=== PATIENT | female | born 1965 | race Caucasian/White ===

== ENCOUNTER 2017-06-08 15:31 | Outpatient (CLI) | payer OTHER | END 2017-06-08 15:32 | disposition home or self-care (01) | LOC: BICMAMMO 15:31 | PROVIDERS: ATTEND Family Medicine | DX: Z12.31 Encounter for screening mammogram for malignant neoplasm of breast (principal) | CPT/HCPCS: 77063; 77067 ==

== ENCOUNTER 2017-07-01 06:12 | Day surgery (SDC) | payer OTHER ==
[2017-06-30 13:14] VITALS: BMI 32.8
[2017-07-01] MEDS ORDERED: Lidocaine 1% PF 5 ML VIAL ONE (08:29)
[2017-07-01] MEDS ORDERED: Propofol 200 MG/20 ML VIAL ONE (08:29)
--- NOTE | 2017-07-01 11:43 | OP ---
DATE OF PROCEDURE: 07/01/2017 SURGEON: Dmitriy Null M.D. PREOPERATIVE DIAGNOSES: 1. Colorectal cancer screening, at increased risk. 2. Family history of sister who had polyps that were removed surgically with segmental colon resecti on. POSTOPERATIVE DIAGNOSES: 1. A 5 mm polyp in the cecum, removed by snare polypectomy. 2. Mild diverticulosis coli scattered throughout the colon. 3. Otherwise, normal exam. RECOMMENDATIONS: 1. Await histopathology. 2. Repeat colonoscopy in 5 years. ANESTHESIA: TIVA. PROCEDURE IN DETAIL: After the patient was informed of the risks, benefits, possible complications o f endoscopy including perforation or bleeding, reaction to medication, and aspiration, informed conse nt was obtained. The patient was brought to endoscopy suite where she was sedated in gentle fashion. Rectal exam was performed which was normal. The endoscope was inserted anal canal, through the col on to the cecum. Prep was good. The scope was then slowly removed with good visualization of the mu cosa. One sessile polyp was noted in the cecum, about 5 mm in size, removed by hot snare polypectomy and retrieved and submitted to Pathology. Retroflexed views in the cecum to the right colon appeare d normal. Forward view showed no other polyps or lesions. The scope was slowly removed through the remainder of the colon with withdrawal time about 7 minutes. There was scattered diverticulosis coli in the rectum. Retroflexion was normal. The scope was removed. The patient tolerated the procedur e well with no complications.
== END 2017-07-01 09:30 | disposition home or self-care (01) ==
LOC: SDC 06:12
PROVIDERS: ATTEND Internal Medicine Gastroenterology
PROC: 0DBH8ZX Excision of Cecum, Via Natural or Artificial Opening Endoscopic, Diagnostic (ICD-10-PCS; principal; 2017-07-01)
DX: Z12.11 Encounter for screening for malignant neoplasm of colon (principal); D12.0 Benign neoplasm of cecum; K57.30 Diverticulosis of large intestine without perforation or abscess without bleeding; J45.909 Unspecified asthma, uncomplicated; F32.9 Major depressive disorder, single episode, unspecified; F41.9 Anxiety disorder, unspecified; Z79.1 Long term (current) use of non-steroidal anti-inflammatories (NSAID); Z79.51 Long term (current) use of inhaled steroids; Z79.899 Other long term (current) drug therapy
CPT/HCPCS: 88305; J2001; J2704

== ENCOUNTER 2017-09-14 19:30 | Outpatient (CLI) | payer OTHER | END 2017-09-14 19:31 | disposition home or self-care (01) | LOC: SLEEPLAB 19:30 | PROVIDERS: ATTEND Family Medicine | DX: G47.33 Obstructive sleep apnea (adult) (pediatric) (principal) | CPT/HCPCS: 95810 ==

== ENCOUNTER 2017-10-09 19:30 | Outpatient (CLI) | payer OTHER | END 2017-10-09 19:31 | disposition home or self-care (01) | LOC: SLEEPLAB 19:30 | PROVIDERS: ATTEND Family Medicine | DX: G47.9 Sleep disorder, unspecified (principal); G47.33 Obstructive sleep apnea (adult) (pediatric) | CPT/HCPCS: 95811 ==

== ENCOUNTER 2018-06-27 11:54 | Outpatient (CLI) | payer OTHER | END 2018-06-27 11:55 | disposition home or self-care (01) | LOC: BICMAMMO 11:54 | PROVIDERS: ATTEND Family Medicine | DX: Z12.31 Encounter for screening mammogram for malignant neoplasm of breast (principal); R92.1 Mammographic calcification found on diagnostic imaging of breast | CPT/HCPCS: 77063; 77067 ==

== ENCOUNTER 2019-06-28 07:45 | Outpatient (CLI) | payer OTHER ==
--- NOTE | 2019-06-28 08:55 | MMO ---
Bilateral MAMMO Bilat Screen [facility]. CLINICAL HISTORY: Patient is 54 years old and is seen for screening. The patient has no family history of breast cancer. The patient has no personal history of cancer. VIEWS: The views performed were: bilateral craniocaudal with tomosynthesis; bilateral mediolateral oblique with tomosynthesis; and bilateral exaggerated craniocaudal. FILMS COMPARED: The present examination has been compared to prior imaging studies performed at [facility] on 06/08/2017 and 06/27/2018, and at [facility] on 04/04/2015 and 04/15/2016. This study has been interpreted with the assistance of computer-aided detection. MAMMOGRAM FINDINGS: The breasts are heterogeneously dense, which could obscure a lesion on mammography. There is a stable oval mass seen in the posterior inner region of the right breast. There are no suspicious masses, suspicious calcifications, or new areas of architectural distortion. IMPRESSION: THERE IS NO MAMMOGRAPHIC EVIDENCE OF MALIGNANCY. A ROUTINE FOLLOW-UP MAMMOGRAM IN 1 YEAR IS RECOMMENDED. THE RESULTS OF THIS EXAM WERE SENT TO THE PATIENT. ACR BI-RADS Category 2 - Benign finding MAMMOGRAPHY NOTE: 1. A negative mammogram report should not delay a biopsy if a dominant of clinically suspicious mass is present. 2. Approximately 10% to 15% of breast cancers are not detected by mammography. 3. Adenosis and dense breasts may obscure an underlying neoplasm. Reported by: SHEFALI SPRING MD Electonically Signed: [id number]
== END 2019-06-28 07:46 | disposition home or self-care (01) ==
LOC: BICMAMMO 07:45
PROVIDERS: ATTEND Family Medicine
DX: Z12.31 Encounter for screening mammogram for malignant neoplasm of breast (principal)
CPT/HCPCS: 77063; 77067